=== PATIENT | female | born 1930 | race Caucasian/White ===

== ENCOUNTER 2016-06-18 10:43 | Emergency (ER) | payer MEDICARE, BC ==
[~2016-06-18] VITALS: Ht 160 cm; Wt 50.0 kg
[~2016-06-18 10:43] MED LIST: BENA20TA48 PO; DICL75TA2 PO; HYDR12.58 PO; METO100T13 PO; MISO100T PO
[2016-06-18 10:48] VITALS: Ht 160 cm; Wt 50.0 kg
[2016-06-18] MEDS ORDERED: ONDANSETRON (ODT) 4 MG TAB ODT STA (11:13)
[2016-06-18] MEDS ORDERED: LIDOCAINE 1%/EPI (MDV) 20 ML INJ INJ STA (11:13)
[2016-06-18] MEDS ORDERED: LIDOCAINE 1% (MDV) 20 ML INJ ONE (11:26)
[2016-06-18] MEDS ORDERED: DIPHTH/TET/ACEL PERTUSS (ADULT) 0.5 ML VIAL IM* ONE (11:30)
[2016-06-18] MEDS ORDERED: HYDROCODONE/APAP (10/325) TAB PO ONE (11:30)
[2016-06-18] MEDS ORDERED: LIDOCAINE 1% (MDV) 20 ML INJ SC ONE (11:30)
--- NOTE | 2016-06-18 12:21 | RADRPT ---
PROCEDURE: XR Left Hand CLINICAL INDICATION: Fall, pain TECHNIQUE: AP, oblique, and lateral radiographs were submitted. COMPARISON: None FINDINGS: Osseous structures: The osseous elements appear rarefied but intact. Joint spaces: are well maintained, with no significant spurring, erosion or joint effusion evident. Soft tissues: appear unremarkable. IMPRESSION: 1. Osteoporosis. 2. Otherwise, unremarkable left hand series. Physician Garrett Date Time Electronically viewed and signed by Emelia Wagner Physician on 06/18/2016 12:20 /
--- NOTE | 2016-06-18 13:03 | RADRPT ---
PROCEDURE: CT Brain without contrast. CLINICAL INDICATION: Head trauma status post fall. TECHNIQUE: A CT of the brain was performed on a multidetector CT scanner utilizing axial sections from the skull base through the vertex without contrast. Images were reviewed on a high-resolution [employer] workstation. Exam CTDI = 43.27 mGy and the DLP = 720.23 mGy-cm. One or more of the following dose reduction techniques were used: Automated exposure control Adjustment of the mA and/or kV according to patient size. Use of iterative reconstruction technique. COMPARISON: Head CT 06/25/2015. FINDINGS: Mild diffuse cerebral and cerebellar atrophy is present. There is proportionate dilatation of the v entricular system and sulci in a symmetric fashion. There is prominence of the extraaxial spaces sec ondary to atrophy. Redemonstrated is a large cystic lesion measures up to 3.5 x 4.5 cm in the poste rior left frontal lobe with no perilesional edema. There is minimal local mass effect, not signific antly changed. There is a small area of encephalomalacia in the parasagittal right frontal lobe. Th ere is no evidence of intracranial hemorrhage, increasing mass effect or midline shift. No abnormal intra-axial or extra-axial fluid collections are seen. The density of the brain is normal and the shea/white matter differentiation is well preserved. Mild patchy diffuse deep white matter microang iopathic ischemic change is seen. The osseous structures and visualized paranasal sinuses are unr emarkable. Vascular calcifications are identified. IMPRESSION: 1. No intracranial hemorrhage, mass effect or midline shift. 2. Unchanged cystic lesion measures up to 3.5 x 4.5 cm in the posterior left frontal lobe. No ami lesional edema with minimal local mass effect. 3. Mild generalized atrophy. Mild microangiopathic ischemic change. 4. Intracranial atherosclerosis. RPTAT: BB .Rudolph Bennett MD, Date Time Electronically viewed and signed by .Rudolph Bennett MD, on 06/18/2016 13:03 .O/
--- NOTE | 2016-06-18 13:16 | RADRPT ---
PROCEDURE: CT Cervical Spine. CLINICAL INDICATION: Neck pain status post fall TECHNIQUE: A CT of the cervical spine was performed on a [employer] [place] [employer] 64-slice CT scanner utilizi ng high-resolution axial imaging from the skull base through the cervical thoracic junction. Sagitt al, coronal, and multiplanar reformatted images were made. CTD I: 22.19 mGy and DLP: 440.90 mGy-cm One or more of the following dose reduction techniques were used: Automated exposure control. Adjustment of the mA and/or kV according to patient size. Use of iterative reconstruction technique. COMPARISON: None FINDINGS: There is straightening of the cervical lordosis. No vertebral body subluxation is seen. No fracture s are evident. The posterior elements are normally aligned. The surrounding soft tissues are jorge alberto l in appearance. Craniocervical junction is unremarkable. C2-C3: The disk height is maintained. The central canal and bilateral neural foramina are adequatel y patent. C3-C4: There is mild posterior disk height loss. There is a small disk bulge eccentric to the left with minimal uncovertebral spurring and mild right facet arthropathy. There is mild bilateral neur al foraminal stenosis. The central canal remains adequately patent. C4-C5: The disk height is maintained. There is minimal uncovertebral spurring and left facet arthr opathy. The central canal and bilateral neural foramina are adequately patent. C5-C6: The disk height is maintained. Disk osteophyte complex, prominent left-sided uncovertebral spurring and mild facet arthropathy are seen at this level. There is mild left neural foraminal kathy nosis. The central canal and right neural foramen are adequately patent. C6-C7: There is mild to moderate disk height loss with discogenic endplate changes. Disk osteophyt e complex, prominent left-sided uncovertebral spurring and mild facet arthropathy are seen at this l evel. There is mild to moderate left and mild right neural foraminal stenosis. There is mild centr al canal stenosis. C7-T1: The disk height is maintained. The central canal and bilateral neural foramina are adequate ly patent. IMPRESSION: 1. No acute fracture or traumatic malalignment. 2. Mild cervical spondylosis more evident at C5-C6 and C6-C7 with mild to moderate left-sided neura l foraminal stenosis. There is mild central canal stenosis at C6-C7. The remainder as above. RPTAT: BB .Rudolph Bennett MD, MD Date Time Electronically viewed and signed by .Rudolph Bennett MD, MD on 06/18/2016 13:15 .O/
[2016-06-18 14:28] VITALS: BP 159/72; PULSE 74; RESP 20; TEMP 98.3
--- NOTE | 2016-06-18 14:45 | ERD ---
ER Documentation Chief Complaint Date/Time DATE: 06/18/16 TIME: 14:43 Chief Complaint ground level fall, lacs on face and 4cm lac on L hand HPI Patient is an 85-year-old female with hypertension and arthritis who presents after a slip and fall. She slipped on a wet ground about 30 minutes ago. She hit her face and her left hand. She did not lose consciousness. She does not know when her last tetanus shot was. She has a laceration to the left hand. Her primary doctor is Dr. Vazquez. ROS All systems reviewed and are negative except as per history of present illness. Medications Home Meds Reported Medications Misoprostol* (Cytotec*) 100 Mcg Tablet, 200 MCG PO DAILY, TAB 09/30/15 Metoprolol Succinate* (Toprol XL*) 100 Mg Tab.sr.24h, 100 MG PO DAILY, #30 TAB 09/30/15 Diclofenac Sodium* (Diclofenac Sodium*) 75 Mg Tablet.dr, 75 MG PO DAILY, #60 TAB 06/25/15 Hydrochlorothiazide* (Hydrochlorothiazide*) 12.5 Mg Tablet, 12.5 MG PO DAILY, # 30 TAB 06/25/15 Benazepril Hcl* (Benazepril Hcl*) 20 Mg Tablet, 20 MG PO DAILY, #30 TAB 06/25/15 Allergies Allergies: Coded Allergies: No Known Allergy (Unverified , 09/30/15) PMhx/Soc History of Surgery: Yes (appendectomy) Anesthesia Reaction: No Hx Neurological Disorder: No Hx Respiratory Disorders: No Hx Cardiac Disorders: Yes (htn) Hx Psychiatric Problems: No Hx Miscellaneous Medical Probl: No Hx Alcohol Use: No Hx Substance Use: No Hx Tobacco Use: No Smoking Status: Never smoker FmHx Family History: No diabetes Physical Exam Vitals Vital Signs Date Time Temp Pulse Resp B/P Pulse Ox O2 Delivery O2 Flow Rate FiO2 06/18/16 14:28 98.3 74 20 159/72 98 Room Air 06/18/16 13:05 98.3 70 18 179/78 96 Room Air 06/18/16 10:48 98.3 80 18 218/94 100 Physical Exam Const: Mild distress Head: Atraumatic Eyes: Normal Conjunctiva ENT: Normal External Ears, Nose and Mouth. Neck: Full range of motion..~ No meningismus. Resp: Clear to auscultation bilaterally Cardio: Regular rate and rhythm, no murmurs Abd: Soft, non tender, non distended. Normal bowel sounds Skin: Abrasions to face which are oozing, 6 cm laceration to the left palmar surface of the hand which is bleeding Back: No midline or flank tenderness Ext: No cyanosis, or edema Neur: Awake and alert, III nerve roots of the left upper extremity are intact Psych: Normal Mood and Affect Results 24 hrs Current Medications Medications (Trade) Dose Ordered Sig/Wyatt Route PRN Reason Start Time Stop Time Status Last Admin Dose Admin Diphtheria/ Tetanus/Acell Pertussis (Adacel) 0.5 ml ONCE ONCE IM* 06/18/16 11:30 06/18/16 11:31 DC 06/18/16 11:31 Acetaminophen/ Hydrocodone Bitart ([place] (10/325)) 1 tab ONCE ONCE PO 06/18/16 11:30 06/18/16 11:31 DC 06/18/16 11:29 Ondansetron HCl (Zofran Odt) 4 mg ONCE STAT ODT 06/18/16 11:13 06/18/16 11:15 DC 06/18/16 11:29 Lidocaine/ Epinephrine (Xylocaine 1%/ Epi (Mdv) 20 ml) 20 ml ONCE STAT INJ 06/18/16 11:13 06/18/16 11:15 DC Lidocaine (Xylocaine 1% (Mdv) 20 ml) 20 ml ONCE ONCE SC 06/18/16 11:30 06/18/16 11:31 DC Lidocaine (Xylocaine 1% (Mdv) 20 ml) 20 ml STK-MED ONCE .ROUTE 06/18/16 11:26 06/18/16 11:27 DC Procedures/MDM CT head and cervical spine show no acute fracture or bleeding per radiology. X- ray of the left hand shows no fracture or dislocation or foreign body per radiology. Laceration Repair by me: Anesthesia: 1% lidocaine without epinephrine locally Location: Left hand Tendon/Joint/Nerves: No injury Foreign body: None detected after copious irrigation and exploration Technique: Simple Interrupted Sutures Complexity: No subcutaneous sutures/mucosal repair/ edge excision Post Closure Length: 6 cm Abrasion Repair by me: Anesthesia: None required Location: Facial abrasions Tendon/Joint/Nerves: No injury Foreign body: None detected after copious irrigation and exploration Technique: Dermabond Complexity: No subcutaneous sutures/mucosal repair/ edge excision Patient's bleeding was easily controlled in the department and there is no indication of anemia. No evidence of compartment syndrome, neurologic injury, vascular injury, open joint, tendon laceration, or foreign body. Patient is appropriate for outpatient follow up. 48 hour wound check. Scar minimization instructions given. Departure Diagnosis: Primary Impression: Laceration Additional Impression: Fall Encounter type: initial encounter Qualified Code: W19.XXXA - Fall, initial encounter Condition: Fair Patient Instructions: Fall, Mechanical, Laceration, All Additional Instructions: Wound check 2 DAYS Suture removal 7-10 DAYS CYNDI LOYA MD Jun 18, 2016 14:45
== END 2016-06-18 14:30 | disposition home or self-care (01) ==
LOC: E/R 10:43
DX: S61.412A Laceration without foreign body of left hand, initial encounter (principal); R40.2252 Coma scale, best verbal response, oriented, at arrival to emergency department; S01.81XA Laceration without foreign body of other part of head, initial encounter; I10 Essential (primary) hypertension; R40.2362 Coma scale, best motor response, obeys commands, at arrival to emergency department; R40.2142 Coma scale, eyes open, spontaneous, at arrival to emergency department; W01.0XXA Fall on same level from slipping, tripping and stumbling without subsequent striking against object, initial encounter; Y92.9 Unspecified place or not applicable; Z23 Encounter for immunization
CPT/HCPCS: 70450; 72125; 90471; 90715

== ENCOUNTER 2016-06-22 10:07 | Emergency (ER) | payer MEDICARE, BC ==
[~2016-06-22] VITALS: Ht 157.5 cm; Wt 58.0 kg
[2016-06-22 10:14] VITALS: Ht 157.5 cm; Wt 58.0 kg
[2016-06-22 11:08] VITALS: BP 145/61; PULSE 70; RESP 19; TEMP 97.9
--- NOTE | 2016-06-22 12:01 | ERD ---
ER Documentation Chief Complaint Date/Time DATE: 06/22/16 TIME: 11:59 Chief Complaint left hand wound check HPI Patient is an 85-year-old female with hypertension who presents for a wound check. She had a laceration to her left hand on June 18. She has no fevers and no pus from the wound. She has full range of motion. She did not take her blood pressure medicines today prior to coming to the emergency department. She has no other complaints. ROS All systems reviewed and are negative except as per history of present illness. Medications Home Meds Reported Medications Misoprostol* (Cytotec*) 100 Mcg Tablet, 200 MCG PO DAILY, TAB 09/30/15 Metoprolol Succinate* (Toprol XL*) 100 Mg Tab.sr.24h, 100 MG PO DAILY, #30 TAB 09/30/15 Diclofenac Sodium* (Diclofenac Sodium*) 75 Mg Tablet.dr, 75 MG PO DAILY, #60 TAB 06/25/15 Hydrochlorothiazide* (Hydrochlorothiazide*) 12.5 Mg Tablet, 12.5 MG PO DAILY, # 30 TAB 06/25/15 Benazepril Hcl* (Benazepril Hcl*) 20 Mg Tablet, 20 MG PO DAILY, #30 TAB 06/25/15 Allergies Allergies: Coded Allergies: No Known Allergy (Unverified , 06/22/16) PMhx/Soc History of Surgery: Yes (appendectomy) Anesthesia Reaction: No Hx Neurological Disorder: No Hx Respiratory Disorders: No Hx Cardiac Disorders: Yes (htn) Hx Psychiatric Problems: No Hx Miscellaneous Medical Probl: No Hx Alcohol Use: No Hx Substance Use: No Hx Tobacco Use: No FmHx Family History: No diabetes Physical Exam Vitals Vital Signs Date Time Temp Pulse Resp B/P Pulse Ox O2 Delivery O2 Flow Rate FiO2 06/22/16 11:08 97.9 70 19 145/61 100 Room Air 06/22/16 10:14 97.6 55 18 206/84 99 Physical Exam Const: No acute distress Head: Atraumatic Eyes: Normal Conjunctiva ENT: Normal External Ears, Nose and Mouth. Neck: Full range of motion..~ No meningismus. Resp: Clear to auscultation bilaterally Cardio: Regular rate and rhythm, no murmurs Abd: Soft, non tender, non distended. Normal bowel sounds Skin: Abrasions to the face without infection, laceration to left hand is clean, dry, and intact Back: No midline or flank tenderness Ext: No cyanosis, or edema Neur: Awake and alert Psych: Normal Mood and Affect Procedures/MDM Wound shows no evidence of infection, foreign body, neurologic injury, vascular injury, open joint or tendon laceration. Patient appropriate for outpatient follow up. Patient has essential hypertension and did not take her blood pressure medicines this morning. Her blood pressure is elevated in the emergency department. I told her to take her blood pressure medicines as soon as the patient gets home. I doubt stroke or hypertensive emergency. The patient can return for any worsening symptoms. She will need her sutures removed in 3-5 days. Departure Diagnosis: Primary Impression: Hypertension Hypertension type: essential hypertension Qualified Code: I10 - Essential hypertension Additional Impression: Encounter for wound re-check Condition: Fair Patient Instructions: High Blood Pressure (Hypertension), Wound Check, Lac F/U (No Infection) Additional Instructions: Call your primary care doctor TOMORROW for an appointment during the next 2-3 days.See the doctor sooner or return here if your condition worsens before your appointment time. CYNDI LOYA MD Jun 22, 2016 12:01
== END 2016-06-22 11:20 | disposition home or self-care (01) ==
LOC: E/R 10:07
DX: I10 Essential (primary) hypertension (principal)
CPT/HCPCS: 99281

== ENCOUNTER 2016-06-28 10:52 | Emergency (ER) | payer MEDICARE, BC ==
[~2016-06-28] VITALS: Ht 160 cm; Wt 57.0 kg
[2016-06-28 11:20] VITALS: Ht 160 cm; Wt 57.0 kg
--- NOTE | 2016-06-28 12:52 | ERD ---
ER Documentation Chief Complaint Date/Time DATE: 06/28/16 TIME: 12:51 Chief Complaint FOR LEFT HAND SUTURE REMOVAL HPI 85-year-old female comes in for suture removal from the left hand from a slip and fall injury that occurred about a week ago. Patient states that she has slip and fall, she was here, did not lose any consciousness, no vomiting. She has no complaints, no fever, chills or drainage. ROS All systems reviewed and are negative except as per history of present illness. Medications Home Meds Reported Medications Misoprostol* (Cytotec*) 100 Mcg Tablet, 200 MCG PO DAILY, TAB 09/30/15 Metoprolol Succinate* (Toprol XL*) 100 Mg Tab.sr.24h, 100 MG PO DAILY, #30 TAB 09/30/15 Diclofenac Sodium* (Diclofenac Sodium*) 75 Mg Tablet.dr, 75 MG PO DAILY, #60 TAB 06/25/15 Hydrochlorothiazide* (Hydrochlorothiazide*) 12.5 Mg Tablet, 12.5 MG PO DAILY, # 30 TAB 06/25/15 Benazepril Hcl* (Benazepril Hcl*) 20 Mg Tablet, 20 MG PO DAILY, #30 TAB 06/25/15 Allergies Allergies: Coded Allergies: No Known Allergy (Unverified , 06/22/16) PMhx/Soc History of Surgery: Yes (appendectomy) Anesthesia Reaction: No Hx Neurological Disorder: No Hx Respiratory Disorders: No Hx Cardiac Disorders: Yes (htn) Hx Psychiatric Problems: No Hx Miscellaneous Medical Probl: No Hx Alcohol Use: No Hx Substance Use: No Hx Tobacco Use: No Physical Exam Vitals Vital Signs Date Time Temp Pulse Resp B/P Pulse Ox O2 Delivery O2 Flow Rate FiO2 06/28/16 11:20 98.7 64 18 187/79 98 Physical Exam General: Well-developed, well-nourished. The patient appears in no acute distress. HEENT: Head is normocephalic, atraumatic. No scleral icterus. Neck: Supple. Nontender. Lungs: Clear to auscultation. Normal air movement. Heart: Regular rate and rhythm. S1 and S2 are normal. No murmurs, gallops, or rubs. Abdomen: Soft, nontender, nondistended. Bowel sounds are normoactive. Extremities: Left palm is a 4 cm transverse laceration in the middle of the palm , there is no dehiscence, erythema or drainage, there is 9 simple interrupted sutures intact Neurologic: Alert and oriented 3. No focal deficits. Skin: Normal turgor. No rash or lesions. Procedures/MDM ED course: Patient's hand was soaked in hydrogen peroxide and normal saline. Suture Removal by me: Sutures removed with tweezers and scissors without incident. Wound shows no evidence of infection, foreign body, neurologic injury, vascular injury, open joint or tendon laceration. Patient to follow up PRN. Patient's blood pressure was elevated (>120/80) but appears stable without evidence of hypertension emergency or urgency. The patient was counseled about the risks of hypertension and urged to pursue outpatient monitoring and therapy within a week with their primary care physician. Departure Diagnosis: Primary Impression: Encounter for removal of sutures Condition: Good Patient Instructions: Suture Removal, No Complication JONATHAN GRAHAM PA-C Jun 28, 2016 12:52
== END 2016-06-28 13:11 | disposition home or self-care (01) ==
LOC: FTE 10:52
DX: Z48.02 Encounter for removal of sutures (principal); I10 Essential (primary) hypertension
CPT/HCPCS: 99281

== ENCOUNTER 2016-10-12 11:25 | Inpatient (IN) | payer MEDICARE, BC ==
[~2016-10-12] VITALS: Ht 160 cm; Wt 55.0 kg
[2016-10-12] MEDS ORDERED: SOD CHLORIDE 0.9% 1,000 ML IV STA (12:27)
[2016-10-12] MEDS ORDERED: LABETALOL HCL 20MG INJ IV ONE (12:30)
[2016-10-12 12:53] LABS: ADD SCAN DIFF NO
[2016-10-12 12:55] LABS: BASOPHIL # 0.1 10^3/ul (0.0-0.1); BASOPHILS % 0.6 % (0.0-2.0); EOSINOPHILS # 0.1 10^3/ul (0.0-0.5); EOSINOPHILS % 1.2 % (0.0-7.0); HEMOGLOBIN 13.9 g/dl (12.0-16.0); LYMPHOCYTES # 1.9 10^3/ul (0.8-2.9); LYMPHOCYTES % 25.2 % (15.0-51.0); MEAN CORPUSCULAR HEMOGLOBIN 31.1 pg (29.0-33.0); MEAN CORPUSCULAR HGB CONC 33.1 g/dl (32.0-37.0); MEAN PLATELET VOLUME 9.9 fl (7.4-10.4); MONOCYTE # 0.8 10^3/ul (0.3-0.9); MONOCYTES % 10.6 % (0.0-11.0); NEUTROPHIL # 4.8 10^3/ul (1.6-7.5); PLATELET COUNT 294 10^3/UL (140-415); RED BLOOD COUNT 4.47 10^6/ul (4.20-5.40); RED CELL DISTRIBUTION WIDTH 12.6 % (11.5-14.5); WHITE BLOOD COUNT 7.7 10^3/ul (4.8-10.8)
--- NOTE | 2016-10-12 13:05 | ERA ---
ER Documentation Chief Complaint Date/Time DATE: 10/12/16 TIME: 12:57 Chief Complaint sent by pmd for dizziness and near syncope HPI This 85-year-old female has been feeling dizzy and like she is going to faint for the last couple of days. She did not faint or fall. She has also been feeling palpitations. Denies chest pain shortness of breath and nausea. Triage EKG shows atrial fibrillation which she has never had before. She has no pain currently. ROS All systems reviewed and are negative except as per history of present illness. Medications Home Meds Reported Medications Misoprostol* (Cytotec*) 100 Mcg Tablet, 200 MCG PO DAILY, TAB 09/30/15 Metoprolol Succinate* (Toprol XL*) 100 Mg Tab.sr.24h, 100 MG PO DAILY, #30 TAB 09/30/15 Diclofenac Sodium* (Diclofenac Sodium*) 75 Mg Tablet.dr, 75 MG PO DAILY, #60 TAB 06/25/15 Hydrochlorothiazide* (Hydrochlorothiazide*) 12.5 Mg Tablet, 12.5 MG PO DAILY, # 30 TAB 06/25/15 Benazepril Hcl* (Benazepril Hcl*) 20 Mg Tablet, 20 MG PO DAILY, #30 TAB 06/25/15 Allergies Allergies: Coded Allergies: No Known Allergy (Unverified , 06/22/16) PMhx/Soc History of Surgery: Yes (appendectomy) Anesthesia Reaction: No Hx Neurological Disorder: No Hx Respiratory Disorders: No Hx Cardiac Disorders: Yes (htn) Hx Psychiatric Problems: No Hx Miscellaneous Medical Probl: No Hx Alcohol Use: No Hx Substance Use: No Hx Tobacco Use: No Smoking Status: Never smoker Physical Exam Vitals Vital Signs Date Time Temp Pulse Resp B/P Pulse Ox O2 Delivery O2 Flow Rate FiO2 10/12/16 14:36 91 20 134/86 99 Room Air 10/12/16 12:58 87 20 147/73 99 Room Air 10/12/16 11:37 98.1 94 18 204/100 98 Physical Exam Const: [] Mild distress, appears uncomfortable Head: Atraumatic Eyes: Normal Conjunctiva ENT: Normal External Ears, Nose and Mouth. Neck: Full range of motion..~ No meningismus. Resp: Clear to auscultation bilaterally Cardio: Irregularly irregular, no murmurs Abd: Soft, non tender, non distended. Normal bowel sounds Skin: No petechiae or rashes Back: No midline or flank tenderness Ext: No cyanosis, or edema, distal pulses intact all 4 extremities Neur: Awake and alert oriented 3, cranial nerves II through XII intact, no cerebellar deficits Psych: Normal Mood and Affect Result Diagram: 10/12/16 1245 10/12/16 1245 Results 24 hrs Laboratory Tests Test 10/12/16 12:45 White Blood Count 7.710^3/ul Red Blood Count 4.4710^6/ul Hemoglobin 13.9g/dl Hematocrit 42.0% Mean Corpuscular Volume 94.0fl Mean Corpuscular Hemoglobin 31.1pg Mean Corpuscular Hemoglobin Concent 33.1g/dl Red Cell Distribution Width 12.6% Platelet Count 72068^3/UL Mean Platelet Volume 9.9fl Neutrophils % 62.0% Lymphocytes % 25.2% Monocytes % 10.6% Eosinophils % 1.2% Basophils % 0.6% Nucleated Red Blood Cells % 0.0/100WBC Neutrophils # 4.810^3/ul Lymphocytes # 1.910^3/ul Monocytes # 0.810^3/ul Eosinophils # 0.110^3/ul Basophils # 0.110^3/ul Nucleated Red Blood Cells # 0.010^3/ul Prothrombin Time 12.6Sec Prothrombin Time Ratio 1.0 INR International Normalized Ratio 0.94 Activated Partial Thromboplast Time 35.2Sec Sodium Level 139mmol/L Potassium Level 4.4mmol/L Chloride Level 101mmol/L Carbon Dioxide Level 28mmol/L Anion Gap 14 Blood Urea Nitrogen 17mg/dl Creatinine 0.86mg/dl Glucose Level 97mg/dl Calcium Level 9.7mg/dl Troponin I < 0.012ng/ml Current Medications Medications (Trade) Dose Ordered Sig/Wyatt Route PRN Reason Start Time Stop Time Status Last Admin Dose Admin Sodium Chloride (NS) 1,000 ml @ 1,000 mls/hr Q1H STAT IV 10/12/16 12:27 10/12/16 13:26 DC 10/12/16 12:48 Labetalol HCl (Labetalol) 20 mg ONCE ONCE IV 10/12/16 12:30 10/12/16 12:31 DC 10/12/16 12:49 Ondansetron HCl (Zofran Inj) 4 mg ER BRIDGE PRN IV NAUSEA AND/OR VOMITING 10/12/16 15:30 10/13/16 15:29 Acetaminophen (Tylenol Tab) 650 mg ER BRIDGE PRN PO MILD PAIN/FEVER 10/12/16 15:30 10/13/16 15:29 Procedures/MDM New onset A. fib with occasional RVR over 100 in the emergency room prior to labetalol IV. Also with hypertensive crisis that she had symptoms of near syncope with a systolic blood pressure over 200 and a diastolic blood pressure over 100. She is taking her normal hypertension medications are no longer working. Patient also has signs of ischemia on her EKG. I did a 10 of labetalol her blood pressure was controlled but she did have a return of mild A. fib with RVR. I am going to withhold further medication at this time and his heart rate is less than 110. Spoke with Dr. Miranda Jarrett and, the primary care doctor who sent her here who will also be admitting. She will be admitted for new onset A. fib and further monitoring. EKG interpretation: Atrial fibrillation rate of 96, lateral T-wave inversions concerning for ischemia, normal axis. court monitor interpretation: Atrial fibrillation with occasional RVR followed by rate controlled A. fib after labetalol Critical care time 38 minutes: This includes treatment of hypertensive crisis with A. fib with RVR, use of vasoactive medication labetalol, multiple visits the patient's bedside to reassess her status, discussion with patient admitting doctor, chart review. This does not include any billable procedures. Departure Diagnosis: Primary Impression: New onset atrial fibrillation Additional Impressions: Atrial fibrillation with RVR Hypertensive crisis Near syncope Acute electrocardiogram changes Condition: Serious GA LONG DO October 12, 2016 13:05
[2016-10-12 13:09] LABS: INR 0.94; PROTIME 12.6 Sec (12.2-14.2)
[2016-10-12 13:10] LABS: PARTIAL THROMBOPLASTIN TIME 35.2 Sec (25.0-35.0)
[2016-10-12 13:13] LABS: CHLORIDE 101 mmol/L (97-110); SODIUM 139 mmol/L (135-144)
[2016-10-12 13:14] LABS: POTASSIUM 4.4 mmol/L (3.5-5.1)
[2016-10-12 13:16] LABS: ANION GAP 14 (8-16); BLOOD UREA NITROGEN 17 mg/dl (7-20); CARBON DIOXIDE 28 mmol/L (21-31); CREATININE 0.86 mg/dl (0.44-1.00)
[2016-10-12 13:17] LABS: CALCIUM 9.7 mg/dl (8.4-10.2); GLUCOSE 97 mg/dl (70-220)
[2016-10-12 13:32] LABS: TROPONIN-I < 0.012 ng/ml (0.00-0.12)
--- NOTE | 2016-10-12 13:37 | RADRPT ---
PROCEDURE: XR Chest. CLINICAL INDICATION: Syncope TECHNIQUE: Single frontal chest x-ray. COMPARISON: None. FINDINGS: No acute infiltrate, pleural effusion or pneumothorax is identified. Cardiac silhouette is borderli ne enlarged. Aortic atherosclerotic calcification is noted. The osseous structures are remarkable for degenerative spondylosis of the spine. IMPRESSION: 1. Borderline enlarged cardiac silhouette. Aortic atherosclerosis. 2. No evidence of acute pulmonary process. RPTAT: HDWR .Tray Mills MD, MD Date Time Electronically viewed and signed by .Tray Mills MD, on 10/12/2016 13:36 .R/
[2016-10-12] MEDS ORDERED: ONDANSETRON 4 MG INJ IV PRN (15:30)
[2016-10-12] MEDS ORDERED: ACETAMINOPHEN 325 MG TAB PO PRN (15:30)
--- NOTE | 2016-10-12 16:20 | RADRPT ---
PROCEDURE: CT Brain without contrast. CLINICAL INDICATION: Syncope TECHNIQUE: A CT of the brain was performed on a multidetector CT scanner utilizing axial sections from the skull base through the vertex without contrast. Images were reviewed on a high-resolution [employer] workstation. Exam CTDI = 43.95 mGy and the DLP = 630.20 mGy-cm. One or more of the following dose reduction techniques were used: Automated exposure control Adjustment of the mA and/or kV according to patient size. Use of iterative reconstruction technique. COMPARISON: CT head 06/18/2016 FINDINGS: Mild diffuse cerebral and cerebellar atrophy is present. There is proportionate dilatation of the ve ntricular system and sulci in a symmetric fashion. Once again, there is a cystic lesion measures up to 3.5 x 4.5 cm in the posterior left frontal lobe with no associated mass effect or perilesional e celina. There is a small area of encephalomalacia in the parasagittal right frontal lobe. There is no evidence of intracranial hemorrhage, increasing mass effect or midline shift. No abnormal intra-axi al or extra-axial fluid collections are seen. Mild periventricular and deep white matter hypoattenua tion is noted in keeping with mild chronic microvascular ischemic changes. The density of the brain is otherwise normal and the shea/white matter differentiation is well preserved. The osseous structu res and visualized paranasal sinuses are unremarkable. Vascular calcifications are identified. IMPRESSION: 1. No intracranial hemorrhage, mass effect or midline shift. 2. Unchanged cystic lesion measures up to 3.5 x 4.5 cm in the posterior left frontal lobe. No signif icant associated mass effect or perilesional edema. 3. Mild generalized atrophy. Mild microangiopathic ischemic change. 4. Intracranial atherosclerosis. RPTAT: BB .Rudolph Bennett MD, MD Date Time Electronically viewed and signed by .Rudolph Bennett MD, MD on 10/12/2016 16:20 .O/
[2016-10-12 16:35] VITALS: BP 206/95; PULSE 103; RESP 16
[2016-10-12] MEDS ORDERED: DILTIAZEM 25 MG INJ IV PRN (17:00)
[2016-10-12] MEDS ORDERED: ACETAMINOPHEN 500 MG TAB PO PRN (17:00)
[2016-10-12] MEDS ORDERED: ZOLPIDEM 5 MG TAB PO PRN (17:00)
[2016-10-12 17:06] VITALS: PULSE 122
[2016-10-12] MEDS: METOPROLOL (XL) 100 MG TAB PO SCH (17:43)
[2016-10-12] MEDS: BENAZEPRIL 20 MG TAB PO SCH (17:43)
[2016-10-12 18:05] VITALS: Ht 160 cm; Wt 55.0 kg
[2016-10-12 18:18] VITALS: BP 200/84
[2016-10-12 20:10] VITALS: PULSE 75
[2016-10-12 20:19] VITALS: BP 132/73; RESP 18
[2016-10-13] VITALS (13 sets, daily range): BP systolic 125–182; BP diastolic 57–91; PULSE 78–92; RESP 18–20
[2016-10-13 08:05] LABS: ADD SCAN DIFF NO
[2016-10-13 08:09] LABS: BASOPHIL # 0.1 10^3/ul (0.0-0.1); BASOPHILS % 0.5 % (0.0-2.0); EOSINOPHILS # 0.1 10^3/ul (0.0-0.5); EOSINOPHILS % 0.6 % (0.0-7.0); HEMATOCRIT 42.7 % (37.0-47.0); LYMPHOCYTES # 1.9 10^3/ul (0.8-2.9); LYMPHOCYTES % 20.6 % (15.0-51.0); MEAN CORPUSCULAR HEMOGLOBIN 31.2 pg (29.0-33.0); MEAN CORPUSCULAR HGB CONC 32.8 g/dl (32.0-37.0); MEAN CORPUSCULAR VOLUME 95.1 fl (82.0-101.0); MEAN PLATELET VOLUME 10.1 fl (7.4-10.4); MONOCYTE # 0.9 10^3/ul (0.3-0.9); MONOCYTES % 9.8 % (0.0-11.0); NEUTROPHIL # 6.3 10^3/ul (1.6-7.5); NEUTROPHILS % 68.1 % (39.0-77.0); PLATELET COUNT 303 10^3/UL (140-415); RED BLOOD COUNT 4.49 10^6/ul (4.20-5.40); RED CELL DISTRIBUTION WIDTH 12.7 % (11.5-14.5); WHITE BLOOD COUNT 9.3 10^3/ul (4.8-10.8)
[2016-10-13 08:30] LABS: ALANINE AMINOTRANSFERASE 69 IU/L (13-69); ALBUMIN/GLOBULIN RATIO 1.42; ALKALINE PHOSPHATASE 95 IU/L (42-121); ANION GAP 11 (8-16); ASPARTATE AMINO TRANSFERASE 37 IU/L (15-46); BILIRUBIN,INDIRECT 0.9 mg/dl (0-1.1); BILIRUBIN,TOTAL 0.9 mg/dl (0.2-1.3); BLOOD UREA NITROGEN 13 mg/dl (7-20); CALCIUM 9.7 mg/dl (8.4-10.2); CARBON DIOXIDE 28 mmol/L (21-31); CHLORIDE 104 mmol/L (97-110); CHOL/HDL RATIO 3.5 RATIO; CHOLESTEROL 175 mg/dl (100-200); CREATININE 0.81 mg/dl (0.44-1.00); GLUCOSE 93 mg/dl (70-220); HDL CHOLESTEROL 49 mg/dl (33-92); POTASSIUM 4.9 mmol/L (3.5-5.1); SODIUM 138 mmol/L (135-144); TOTAL PROTEIN 6.8 g/dl (6.1-8.1); TRIGLYCERIDES 110 mg/dl (0-149)
[2016-10-13 08:42] LABS: TROPONIN-I < 0.012 ng/ml (0.00-0.12)
[2016-10-13] MEDS: METOPROLOL (XL) 100 MG TAB PO SCH (08:43)
[2016-10-13] MEDS: BENAZEPRIL 20 MG TAB PO SCH (08:43)
[2016-10-13] MEDS: ENOXAPARIN 40 MG/0.4 ML SYG SC SCH (08:49)
[2016-10-13] MEDS ORDERED: BENAZEPRIL 20 MG TAB PO SCH (09:30)
--- NOTE | 2016-10-13 09:59 | HP ---
DATE OF ADMISSION: 10/12/2016 CHIEF COMPLAINT: Shortness of breath. HISTORY OF PRESENT ILLNESS: The patient is an 85-year-old lady who has been complaining of increasi ng dizziness, about to faint, has been going on for the last 3 days and there is definitely no histo ry of fall and also has been having palpitations, seen in my office and was found to be in atrial fi brillation, clinically and with severe hypertension, referred to the emergency room from where she w as admitted. REVIEW OF SYSTEMS: HEAD: No history of headaches. No history of strokes. EYES: History of glaucoma. ENT: Noncontributory. NECK: No history of thyroid disease. The patient does have carotid stenosis. HEART: No PND, orthopnea, palpitations or chest pains. The patient has been referred several times to field foreman and not clear whether she ever made the appointment. She states that she was seen by doctors recently for dizziness, had some studies on her brain done, again details are not very cl ear. GASTROINTESTINAL: No constipation, diarrhea, change in bowel habits. Never had a colonoscopy and d oes not want to have same. GENITOURINARY: No dysuria, hematuria, kidney stones. Mammogram done 2 years ago was normal. GENERAL: No history of weight loss, weight gain. PRIOR SURGERIES: Include cholecystectomy and appendectomy . FAMILY HISTORY: Father in his 40s, exact details not clear. Mother has hypertension. The pat ient is , has no children. ALLERGIES: NO KNOWN ALLERGIES. MEDICATIONS: Include: 1. Cytotec 100 mcg daily. 2. Metoprolol succinate 100 mg q.24h. 3. Diclofenac sodium 75 mg p.o. daily. 4. Hydrochlorothiazide 12.5 mg daily. 5. Benazepril 20 mg p.o. daily. PHYSICAL EXAMINATION: GENERAL: The patient is an average-built female who is presently in no acute distress. VITAL SIGNS: While in the ER, her blood pressure was 204/100. Ventricular rate was over 100 and wh ile in the ER she was given labetalol 20 mg IV with improvement of her blood pressure and was transf erred to the telemetry unit. HEENT: Pupils 3 mm reacting well to light. ENT: NAD. NECK: Supple. No thyromegaly, bruits or lymphadenopathy. CHEST: Clinically clear. HEART: S1, S2 heard with no definite gallops. ABDOMEN: Soft, nontender, no hepatosplenomegaly. EXTREMITIES: No edema. Pedal pulsations not palpable. Homans sign is negative. NEUROLOGIC: No localizing or lateralizing signs. LABORATORY DATA: Initial WBC count 12.7, hematocrit 42, platelet count is 294. Sodium 139, potassi um 4.4. Troponin 0.012, PT INR 0.94. IMAGING: Chest x-ray shows cardiomegaly. CT of the brain shows cystic lesion 3.5 x 4.5 cm in the posterior left frontal lobe with no associat ed mass effect or midline shift. IMPRESSION: 1. Dizziness, likely secondary to severe hypertension and new onset atrial fibrillation with rapid ventricular response. 2. Likely has underlying coronary artery disease. 3. Peripheral vascular disease with carotid stenosis and PAD. PLAN: The patient will continue calcium channel blockers on a p.r.n. basis and continue beta blocke rs and BOAZ inhibitors and obtain carotid vascular study and repeat troponin this morning and cardiol ogy consultation has been requested with Dr. Martinez and follow his recommendations. Dictated By: MELANIE ROBLEDO MD SR/DENIA Conf#: [id number] DID#: [id number]
--- NOTE | 2016-10-13 10:03 | RADRPT ---
Echocardiogram Report Patient Name: CHA MUNROE Gender: Female Date: 1930 Study Date: 13-Oct-2016 Fruit Culler: [facility] Location: [id number] Ref. Physician: MELANIE ROBLEDO Quality: Good Procedures: Transthoracic echocardiogram with complete 2D, M-Mode, and doppler examination. Indications: new onset Atrial Fibrillation. 2D/M Mode Doppler Measurement Value Normal Ranges Measurement Value Normal Ranges LVIDd 2D 4.3 3.5 - 5.6 cm AV Peak [place] 1.7 m/sec LVIDs 2D 2.9 2.1 - 4.1 cm AV Peak PG 12.0 mmHg FS 2D 32.6 % LVOT Peak [place] 1.3 m/sec LVPWd 2D 0.9 0.6 - 1.1 cm LVOT Peak PG 7.0 mmHg IVSd 2D 0.9 0.6 - 1.1 cm MV E Peak [place] 1.0 m/sec IVS/LVPW 2D 1.1 MV Decel Time 113 msec AoR Diam 2D 2.7 2.0 - 3.7 cm TR Peak [place] 2.7 m/sec LA/Ao 2D 1 0 - 1 TR Peak PG 29.0 mmHg EDV 2D 80.6 cm3 RVSP 37.0 mmHg ESV 2D 24.6 cm3 LA Dimen 2D 3.6 2.3 - 4.0 cm Findings Left Ventricle: Normal left ventricular systolic function. Normal left ventricular cavity size. Normal left ventricular wall thickness. Ejection fraction is visually estimated at 60 %. Right Ventricle: Normal right ventricular size. Normal right ventricular systolic function. Left Atrium: The left atrium is normal in size. Right Atrium: The right atrium is normal in size. Mitral Valve: Mitral valve leaflets appear mildly thickened. Mild mitral annular calcification. Mild mitral valve regurgitation. Aortic Valve: No significant aortic stenosis or insufficiency. Aortic cusps appear mildly calcified. Trileaflet aortic valve. Tricuspid Valve: Normal appearance of the tricuspid valve. Right ventricular systolic pressure is consistent with mild pulmonary hypertension. Estimated peak PA systolic pressure 34 mmHg. There is mild tricuspid regurgitation. Pulmonic Valve: There is mild pulmonic regurgitation. Pericardium: Normal pericardium with no significant pericardial effusion. Aorta: Normal aortic root. IVC: Normal size and normal respiratory collapse consistent with normal right atrial pressure. Conclusions 1.Normal left ventricular systolic function. Normal left ventricular cavity size. Normal left ventricular wall thickness. Ejection fraction is visually estimated at 60 %. 2.Normal right ventricular size. Normal right ventricular systolic function. 3.No significant aortic stenosis or insufficiency. Aortic cusps appear mildly calcified. Trileaflet aortic valve. 4.Normal appearance of the tricuspid valve. Right ventricular systolic pressure is consistent with mild pulmonary hypertension. Estimated peak PA systolic pressure 34 mmHg. There is mild tricuspid regurgitation. 5.Normal size and normal respiratory collapse consistent with normal right atrial pressure. 6.Normal pericardium with no significant pericardial effusion. 7.No Vegetation, masses, or thrombi seen. Electronically Signed By: Ephraim Renteria 13-Oct-2016 10:03:03 -0700 Patient Name: CHA MUNROE Study Date: 13-Oct-2016 [id number]
--- NOTE | 2016-10-13 11:01 | RADRPT ---
PROCEDURE: US Carotids. CLINICAL INDICATION: bruit , dizziness TECHNIQUE: Multiple sonographic of the carotid bifurcation region and vertebral arteries were obta ined utilizing shea scale, duplex and color-flow imaging. The images were reviewed on a PACS worksta tion. COMPARISON: No prior studies are available for comparison. FINDINGS: Evaluation of the right carotid bifurcation region reveals moderate to severe calcific atherosclerot ic disease. there is a 55% stenosis in the right carotid bulb region. Evaluation of the left carotid bifurcation region reveals mild to moderate calcific atherosclerotic disease. . There is a 36% stenosis in the left distal common carotid artery. There is a 50% stenos is in the left carotid bifurcation. There is antegrade flow within the vertebral arteries bilaterally. RIGHT CAROTID MEASUREMENTS: Common Carotid Sozoyb39.2 (cm/sec) Internal Carotid Artery - okkubmmx58.0 (cm/sec) Internal Carotid Artery - onn261.4 (cm/sec) Internal Carotid Artery - lalkmu171.8 (cm/sec) Internal Carotid/Common Carotid5.6 LEFT CAROTID MEASUREMENTS: Common Carotid Bpmxsh05.7 (cm/sec) Internal Carotid Artery - zcigaprl54.6 (cm/sec) Internal Carotid Artery - heu527.6 (cm/sec) Internal Carotid Artery - bncxof094.6 (cm/sec) Internal Carotid/Common Carotid1.93 RPTAT: AA IMPRESSION: Elevated velocities in the right ICA, suspicious for a 50-69% stenosis. Validated velocity measurements with angiographic measurements, velocity criteria are extrapolated f rom diameter data as defined by the Society of Radiologists in Ultrasound Consensus Conference Radio logy 2003; 229;340-346. This study does indirectly reference the measurement of the distal ICA diam eter as the denominator for stenosis measurement. Normal antegrade flow in the vertebral arteries bilaterally. Further evaluation with a CT angiogram is recommended. .Caio Antonio MD, MD Date Time Electronically viewed and signed by .Caio Antonio MD, MD on 10/13/2016 11:00 .S/
--- NOTE | 2016-10-13 12:25 | CONS ---
Date/Time of Note Date/Time of Note DATE: 10/13/16 TIME: 11:58 Assessment/Plan Assessment/Plan Chief Complaint/Hosp Course Impression: - atrial fibrillation- new diagnosis, non-valvular. dizziness likely related. currently rate controlled. does have elevated [id number] score 7 (age > 75, woman, htn, old stroke/tia 2003, pvd). does also have elevated bleeding risk with has bled score of 4. could consider low dose eliquis 2.5mg po bid trial given lower risk of bleeding - hypertension- needs improved control, on bid acei now and metop. ok to restart thiazide as listed on outpt medications. - carotid stenosis- no cva on ct scan, cont statin. anticoag as above Problems: Consultation Date/Type/Reason Admit Date/Time October 12, 2016 at 15:06 Date of Consultation: October 13, 2016 Type of Consultation: Cardiology Reason for Consultation Afib Referring Provider: MELANIE ROBLEDO MD Hx of Present Illness Ms. Bernstein is a pleasant 85 y.o. woman with h/o of hypertension, pvd who is admitted to [facility] due to dizziness. Pt reports chronic dizziness for 1 year which has been progressive more recently. Pt states occurs mostly with activity, has had previous falls x 5, most recently in 05/2016 she states. Has associated palpitations. no n/v, diaphoresis, sob, chest pain. Pt denies dizziness at rest/ laying down. no pnd, orthopnea, edema. pt ambulates to bus, no chest pain, sob. states she was previously on asa, stopped due to blood in her stool. no major gi bleeding hx she states. EKG in ED showed rate controlled afib, pt denies h/o of arrhythmia. also with uncontrolled hypertension on presentation Constitutional: no complaints Eyes: no complaints ENT: no complaints Respiratory: no complaints Cardiovascular: palpitations Gastrointestinal: no complaints Genitourinary: no complaints Musculoskeletal: no complaints Skin: no complaints Neurologic: dizziness Endocrine: no complaints Psychological: nl mood/affect, no complaints Immunologic: no complaints Past Medical History Dizziness Falls HTN CVA 2003' PVD - carotid stenosis Glaucoma PAC Past Surgical History Past Surgical Hx: other (gluacoma) Family History Significant Family History: other (no premature cad) Social History Alcohol Use: none Smoking Status: Never smoker Drug Use: none Exam/Review of Systems Vital Signs Vitals Vital Signs Date Time Temp Pulse Resp B/P Pulse Ox O2 Delivery O2 Flow Rate FiO2 10/13/16 11:18 98.0 77 18 157/72 100 10/12/16 16:35 Room Air Intake and Output 10/12/16 10/12/16 10/13/16 15:00 23:00 07:00 Intake Total 200 ml 120 ml Balance 200 ml 120 ml Exam Constitutional: alert, oriented, well developed Psych: no complaints Head: atraumatic, normocephalic Eyes: EOMI, nl conjunctiva, nl lids ENMT: mucosa pink and moist, nl external ears & nose Neck: non-tender, supple Respiratory: clear to auscultation, normal air movement Cardiovascular: irregular rhythm, nl pulses, No S3, No S4, No bruits, No edema, No systolic murmur Gastrointestinal: nl liver, spleen, non-tender, soft Musculoskeletal: nl extremities to inspection, nl gait and stance Extremities: normal pulses Neurological: TICKET WORKER II-XII 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, nl mental status, nl speech, nl strength Skin: nl turgor Results Result Diagram: 10/13/16 0740 10/13/16 0740 Results 24 hrs Laboratory Tests Test 10/12/16 12:45 10/13/16 07:40 White Blood Count 7.7 9.3 # Red Blood Count 4.47 4.49 Hemoglobin 13.9 14.0 Hematocrit 42.0 42.7 Mean Corpuscular Volume 94.0 95.1 Mean Corpuscular Hemoglobin 31.1 31.2 Mean Corpuscular Hemoglobin Concent 33.1 32.8 Red Cell Distribution Width 12.6 12.7 Platelet Count 294 303 Mean Platelet Volume 9.9 10.1 Neutrophils % 62.0 68.1 Lymphocytes % 25.2 20.6 Monocytes % 10.6 9.8 Eosinophils % 1.2 0.6 Basophils % 0.6 0.5 Nucleated Red Blood Cells % 0.0 0.0 Neutrophils # 4.8 6.3 Lymphocytes # 1.9 1.9 Monocytes # 0.8 0.9 Eosinophils # 0.1 0.1 Basophils # 0.1 0.1 Nucleated Red Blood Cells # 0.0 0.0 Prothrombin Time 12.6 Prothrombin Time Ratio 1.0 INR International Normalized Ratio 0.94 Activated Partial Thromboplast Time 35.2 H Sodium Level 139 138 Potassium Level 4.4 4.9 Chloride Level 101 104 Carbon Dioxide Level 28 28 Anion Gap 14 11 Blood Urea Nitrogen 17 13 Creatinine 0.86 0.81 Glucose Level 97 93 Calcium Level 9.7 9.7 Troponin I < 0.012 < 0.012 Hemoglobin A1c 5.4 Total Bilirubin 0.9 Direct Bilirubin 0.00 Indirect Bilirubin 0.9 Aspartate Amino Transf (AST/SGOT) 37 Alanine Aminotransferase (ALT/SGPT) 69 Alkaline Phosphatase 95 Total Protein 6.8 Albumin 4.0 Globulin 2.80 Albumin/Globulin Ratio 1.42 Triglycerides Level 110 Cholesterol Level 175 LDL Cholesterol, Calculated 104 HDL Cholesterol 49 Cholesterol/HDL Ratio 3.5 Medications Medications Current Medications Acetaminophen (Tylenol Tab) 500 mg Q4H PRN PO PAIN AND OR ELEVATED TEMP; Start 10/12/16 at 17:00 Clonidine (Catapres) 0.1 mg Q4H PRN PO ELEVATED BLOOD PRESSURE; Start 10/12/16 at 17:00 Metoprolol Succinate (Toprol Xl) 100 mg DAILY PO Last administered on 08:43; Admin Dose 100 MG; Start 10/12/16 at 17:00 Diltiazem HCl (Cardizem Iv) 5 mg Q4H PRN IV TACHYCARDIA ; Start 10/12/16 at 17: 00 Zolpidem Tartrate (Ambien) 5 mg HS PRN PO INSOMNIA; Start 10/12/16 at 17:00 Enoxaparin Sodium (Lovenox) 40 mg DAILY SC Last administered on 10/13/16 08:49 ; Admin Dose 40 MG; Start 10/13/16 at 09:00 Benazepril HCl (Lotensin) 40 mg DAILY PO ; Start 10/14/16 at 09:00 Atorvastatin Calcium (Lipitor) 20 mg HS PO ; Start 10/13/16 at 21:00 Benazepril HCl (Lotensin) 20 mg ONCE PO Last administered on 10/13/16 10:10; Admin Dose 20 MG; Start 10/13/16 at 09:30; Stop 10/13/16 at 23:00 Procedures Procedures EKG: afib, rate controlled cxr images reviewed no acute abnl, Aortic atherosclerosis. FRANSISCO DUONG October 13, 2016 12:09
[2016-10-13] MEDS: ATORVASTATIN 20 MG TAB PO SCH (20:21)
--- NOTE | 2016-10-13 20:37 | RADRPT ---
Vent Rate: 85 bpm RR Interval: 0 msec AR Interval: 0 msec QRS Duration: 84 msec QT Interval: 366 msec QTC Interval: 435 msec P-R-T [place]: 0 - 82 - 31 degrees Atrial fibrillation Abnormal ECG Electronically Signed By: Ollie Aquino [id number]
[2016-10-14] VITALS (12 sets, daily range): BP systolic 106–146; BP diastolic 56–90; PULSE 73–92; RESP 16–18
[2016-10-14 01:16] LABS: ADD UMIC YES; URINE BILIRUBIN (Dip) NEGATIVE (NEGATIVE); URINE BLOOD (Dip) NEGATIVE (NEGATIVE); URINE COLOR LT. YELLOW (YELLOW); URINE GLUCOSE (Dip) NEGATIVE (NEGATIVE); URINE KETONES (Dip) NEGATIVE (NEGATIVE); URINE LEUKOCYTE ESTERASE (Dip) TRACE (NEGATIVE); URINE NITRITE (Dip) POSITIVE (NEGATIVE); URINE TOTAL PROTEIN (Dip) NEGATIVE (NEGATIVE); URINE UROBILINOGEN (Dip) 0.2 E.U./dL (0.1-1.0)
[2016-10-14 02:08] LABS: BACTERIA,URINE MANY; URINE RBCS 0-2 /HPF (0)
[2016-10-14] MEDS: BENAZEPRIL 40 MG TAB PO SCH (08:21)
[2016-10-14] MEDS: METOPROLOL (XL) 100 MG TAB PO SCH (08:22)
[2016-10-14] MEDS: ENOXAPARIN 40 MG/0.4 ML SYG SC SCH (08:39)
--- NOTE | 2016-10-14 09:48 | PN ---
DATE: SUBJECTIVE: The patient is ambulating. Denies any chest pain. Heart rate went up to the 130s. Rh ythm is AFib. OBJECTIVE: VITAL SIGNS: Blood pressure 144/83, O2 sat 97%. CHEST: Clinically clear. HEART: S1, S2 with no definite gallops. EXTREMITIES: No edema. Dr. Renteria's consultation and recommendations greatly appreciated. IMPRESSION: 1. Atrial fibrillation, non-valvular, will continue present recommends as per Dr. Renteria. 2. Carotid stenosis. 3. Hypertension. 4. Hyperlipidemia. PLAN: The patient has been advised to continue the present treatment. Will observe her 24 hours. If she is stable, discharge in a.m. after discussing with Dr. Singh. Dictated By: MELANIE ROBLEDO MD, SR/DENIA Conf#: [id number] DID#: [id number]
[2016-10-14 10:12] LABS: ADD SCAN DIFF NO
[2016-10-14 10:21] LABS: BASOPHIL # 0.1 10^3/ul (0.0-0.1); BASOPHILS % 0.5 % (0.0-2.0); EOSINOPHILS # 0.1 10^3/ul (0.0-0.5); EOSINOPHILS % 0.8 % (0.0-7.0); HEMATOCRIT 45.8 % (37.0-47.0); LYMPHOCYTES # 1.9 10^3/ul (0.8-2.9); LYMPHOCYTES % 18.1 % (15.0-51.0); MEAN CORPUSCULAR HEMOGLOBIN 31.1 pg (29.0-33.0); MEAN CORPUSCULAR HGB CONC 32.8 g/dl (32.0-37.0); MEAN CORPUSCULAR VOLUME 94.8 fl (82.0-101.0); MEAN PLATELET VOLUME 9.9 fl (7.4-10.4); MONOCYTE # 1.2 10^3/ul (0.3-0.9); MONOCYTES % 11.4 % (0.0-11.0); NEUTROPHIL # 7.3 10^3/ul (1.6-7.5); NEUTROPHILS % 68.7 % (39.0-77.0); PLATELET COUNT 317 10^3/UL (140-415); RED BLOOD COUNT 4.83 10^6/ul (4.20-5.40); RED CELL DISTRIBUTION WIDTH 12.6 % (11.5-14.5); WHITE BLOOD COUNT 10.7 10^3/ul (4.8-10.8)
[2016-10-14 10:31] LABS: POTASSIUM 5.1 mmol/L (3.5-5.1)
[2016-10-14 10:34] LABS: CREATININE 0.85 mg/dl (0.44-1.00)
[2016-10-14 10:35] LABS: MAGNESIUM 1.7 mg/dl (1.7-2.5)
--- NOTE | 2016-10-14 17:23 | CONS ---
Date/Time of Note Date/Time of Note DATE: 10/14/16 TIME: 17:20 Assessment/Plan Assessment/Plan Chief Complaint/Hosp Course Impression: - atrial fibrillation- new diagnosis, non-valvular. dizziness likely related. currently rate controlled and no further dizziness. does have elevated [id number] score 7 (age > 75, woman, htn, old stroke/tia 2004, pvd). does also have elevated bleeding risk with has bled score of 4. recommend low dose eliquis 2.5mg po bid trial given lower risk of bleeding. if elevated hrs may need increased metoprolol as well - hypertension- improved control, on bid acei now and metop. if elevated hrs may need increased metoprolol as well - carotid stenosis- no cva on ct scan, cont statin. anticoag as above Problems: Consultation Date/Type/Reason Admit Date/Time October 12, 2016 at 15:06 Initial Consult Date 10/13/16 Type of Consultation: Cardiology Referring Provider: MELANIE ROBLEDO MD 24 HR Interval Summary Free Text/Dictation no acute events. seen this am, denies any palpitations, dizziness, falls. tele reviewed, afib rates controlled 80s-90s. Detailed Summary ENT: no complaints Respiratory: no complaints Cardiovascular: no complaints Gastrointestinal: no complaints Genitourinary: no complaints Exam/Review of Systems Vital Signs Vitals Vital Signs Date Time Temp Pulse Resp B/P Pulse Ox O2 Delivery O2 Flow Rate FiO2 10/14/16 16:11 87 10/14/16 15:43 98.1 16 146/74 98 10/13/16 21:35 Room Air Intake and Output 10/13/16 10/13/16 10/14/16 15:00 23:00 07:00 Intake Total 750 ml 180 ml Balance 750 ml 180 ml Exam Constitutional: alert, oriented, well developed Psych: no complaints Head: atraumatic, normocephalic Eyes: EOMI, nl conjunctiva, nl lids ENMT: mucosa pink and moist, nl external ears & nose Neck: non-tender, supple Respiratory: clear to auscultation, normal air movement Cardiovascular: irregular rhythm, nl pulses, No S3, No S4, No bruits, No edema, No systolic murmur Gastrointestinal: nl liver, spleen, non-tender, soft Musculoskeletal: nl extremities to inspection, nl gait and stance Extremities: normal pulses 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 YELLOW Urine Clarity HAZY Urine pH 7.0 Urine Specific [place] <=1.005 L Urine Ketones NEGATIVE Urine Nitrite POSITIVE H Urine Bilirubin NEGATIVE Urine Urobilinogen 0.2 E.U./dL Urine Leukocyte Esterase TRACE H Urine Microscopic RBC 0-2 Urine Microscopic WBC 5-10 Urine Bacteria MANY Urine Hemoglobin NEGATIVE Urine Glucose NEGATIVE Urine Total Protein NEGATIVE White Blood Count 10.7 Red Blood Count 4.83 Hemoglobin 15.0 Hematocrit 45.8 Mean Corpuscular Volume 94.8 Mean Corpuscular Hemoglobin 31.1 Mean Corpuscular Hemoglobin Concent 32.8 Red Cell Distribution Width 12.6 Platelet Count 317 Mean Platelet Volume 9.9 Neutrophils % 68.7 Lymphocytes % 18.1 Monocytes % 11.4 H Eosinophils % 0.8 Basophils % 0.5 Nucleated Red Blood Cells % 0.0 Neutrophils # 7.3 Lymphocytes # 1.9 Monocytes # 1.2 H Eosinophils # 0.1 Basophils # 0.1 Nucleated Red Blood Cells # 0.0 Sodium Level 139 Potassium Level 5.1 Chloride Level 101 Carbon Dioxide Level 25 Anion Gap 18 #H Blood Urea Nitrogen 12 Creatinine 0.85 Glucose Level 128 Calcium Level 10.0 Magnesium Level 1.7 Medications Medications Current Medications Acetaminophen (Tylenol Tab) 500 mg Q4H PRN PO PAIN AND OR ELEVATED TEMP Last administered on 10/14/16 04:30; Admin Dose 500 MG; Start 10/12/16 at 17:00 Clonidine (Catapres) 0.1 mg Q4H PRN PO ELEVATED BLOOD PRESSURE Last administered on 10/13/16 20:20; Admin Dose 0.1 MG; Start 10/12/16 at 17:00 Metoprolol Succinate (Toprol Xl) 100 mg DAILY PO Last administered on 08:22; Admin Dose 100 MG; Start 10/12/16 at 17:00 Diltiazem HCl (Cardizem Iv) 5 mg Q4H PRN IV TACHYCARDIA ; Start 10/12/16 at 17: 00 Zolpidem Tartrate (Ambien) 5 mg HS PRN PO INSOMNIA; Start 10/12/16 at 17:00 Benazepril HCl (Lotensin) 40 mg DAILY PO Last administered on 10/14/16 08:21; Admin Dose 40 MG; Start 10/14/16 at 09:00 Atorvastatin Calcium (Lipitor) 20 mg HS PO Last administered on 10/13/16 20:21 ; Admin Dose 20 MG; Start 10/13/16 at 21:00 Apixaban (Eliquis) 2.5 mg BID PO ; Start 10/14/16 at 21:00 Procedures Procedures imaging reports reviewed in emr FRANSISCO DUONG October 14, 2016 17:23
[2016-10-14] MEDS: ATORVASTATIN 20 MG TAB PO SCH (20:34)
[2016-10-14] MEDS: APIXABAN 5 MG TABLET PO SCH (20:34)
[2016-10-15] VITALS (11 sets, daily range): BP systolic 113–174; BP diastolic 53–79; PULSE 72–121; RESP 18
[2016-10-15 07:12] LABS: ADD SCAN DIFF NO
[2016-10-15 07:20] LABS: BASOPHILS % 0.5 % (0.0-2.0); EOSINOPHILS # 0.1 10^3/ul (0.0-0.5); EOSINOPHILS % 1.1 % (0.0-7.0); HEMOGLOBIN 14.1 g/dl (12.0-16.0); LYMPHOCYTES # 2.1 10^3/ul (0.8-2.9); LYMPHOCYTES % 25.7 % (15.0-51.0); MEAN CORPUSCULAR HEMOGLOBIN 30.7 pg (29.0-33.0); MEAN CORPUSCULAR HGB CONC 32.8 g/dl (32.0-37.0); MEAN CORPUSCULAR VOLUME 93.5 fl (82.0-101.0); MEAN PLATELET VOLUME 10.2 fl (7.4-10.4); MONOCYTE # 0.9 10^3/ul (0.3-0.9); MONOCYTES % 11.2 % (0.0-11.0); NEUTROPHIL # 5.1 10^3/ul (1.6-7.5); NEUTROPHILS % 61.1 % (39.0-77.0); PLATELET COUNT 280 10^3/UL (140-415); RED CELL DISTRIBUTION WIDTH 12.8 % (11.5-14.5); WHITE BLOOD COUNT 8.3 10^3/ul (4.8-10.8)
[2016-10-15 07:41] LABS: POTASSIUM 4.1 mmol/L (3.5-5.1)
[2016-10-15 07:43] LABS: CREATININE 0.87 mg/dl (0.44-1.00)
[2016-10-15 07:44] LABS: CALCIUM 9.6 mg/dl (8.4-10.2); MAGNESIUM 1.7 mg/dl (1.7-2.5)
[2016-10-15] MEDS: APIXABAN 5 MG TABLET PO SCH (08:30)
[2016-10-15] MEDS: BENAZEPRIL 40 MG TAB PO SCH (08:31)
[2016-10-15] MEDS: METOPROLOL (XL) 100 MG TAB PO SCH (08:32)
[2016-10-15] MEDS ORDERED: CEFTRIAXONE 1 GM/50 ML (PMX) 50 ML IVPB ONE (14:00)
[2016-10-15] MEDS ORDERED: MAGNESIUM SULFATE 2 GM/50 ML 50 ML IVPB ONE (14:00)
[2016-10-15] MEDS ORDERED: BENA40TA41 PO (14:01)
[2016-10-15] MEDS ORDERED: APIX5TAB PO (14:01)
[2016-10-15] MEDS ORDERED: ATOR20TA65 PO (14:01)
[2016-10-15] MEDS ORDERED: METO100T13 PO (14:01)
--- NOTE | 2016-10-15 15:27 | CONS ---
Date/Time of Note Date/Time of Note DATE: 10/15/16 TIME: 15:22 Assessment/Plan Assessment/Plan Chief Complaint/Hosp Course Impression: - atrial fibrillation- new diagnosis, non-valvular. dizziness likely related. currently rate controlled and no further dizziness. does have elevated [id number] score 7 (age > 75, woman, htn, old stroke/tia 2004, pvd). does also have elevated bleeding risk with has bled score of 4. recommend cont low dose eliquis 2.5mg po bid trial given lower risk of bleeding. cont metoprolol for rate control, if rates elevated can increase dose, currently appears well controlled. - hypertension- improved control, on bid acei now and metop. if elevated hrs may need increased metoprolol as well - carotid stenosis- no cva on ct scan, cont statin. anticoag as above - vision changes- brief, no cva like sx. if recurrent may need further evaluation Problems: Consultation Date/Type/Reason Admit Date/Time October 12, 2016 at 15:06 Initial Consult Date 10/13/16 Type of Consultation: Cardiology Referring Provider: MELANIE ROBLEDO MD 24 HR Interval Summary Free Text/Dictation no acute event. pt states had some abnl vision when awakening for a few seconds , states room looked upside down. went away quickly, no visual defects, no slurred speech, weakness. eating this am. no palpitations, dizziness, weakness. tele reviewed. no events. afib rates 80s-100s Detailed Summary Eyes: no complaints ENT: no complaints Respiratory: no complaints Cardiovascular: no complaints Gastrointestinal: no complaints Exam/Review of Systems Vital Signs Vitals Vital Signs Date Time Temp Pulse Resp B/P Pulse Ox O2 Delivery O2 Flow Rate FiO2 10/15/16 12:00 85 10/15/16 11:12 98.5 18 128/69 98 10/13/16 21:35 Room Air Intake and Output 10/14/16 10/14/16 10/15/16 15:00 23:00 07:00 Intake Total 680 ml 300 ml Balance 680 ml 300 ml Exam Constitutional: alert, oriented, well developed Psych: no complaints Head: atraumatic, normocephalic Eyes: EOMI, nl conjunctiva, nl lids ENMT: mucosa pink and moist, nl external ears & nose Neck: non-tender, supple Respiratory: clear to auscultation, normal air movement Cardiovascular: irregular rhythm, nl pulses, No S3, No S4, No bruits, No edema, No systolic murmur Gastrointestinal: nl liver, spleen, non-tender, soft Musculoskeletal: nl extremities to inspection, nl gait and stance Extremities: normal pulses Neurological: MANAGER COST II-XII intact, nl mental status, nl speech, nl strength Skin: nl turgor Results Result Diagram: 10/15/1655410/15/16554 Results 24 hrs Laboratory Tests Test 10/15/16 05:55 White Blood Count 8.3 # Red Blood Count 4.60 Hemoglobin 14.1 Hematocrit 43.0 Mean Corpuscular Volume 93.5 Mean Corpuscular Hemoglobin 30.7 Mean Corpuscular Hemoglobin Concent 32.8 Red Cell Distribution Width 12.8 Platelet Count 280 Mean Platelet Volume 10.2 Neutrophils % 61.1 Lymphocytes % 25.7 Monocytes % 11.2 H Eosinophils % 1.1 Basophils % 0.5 Nucleated Red Blood Cells % 0.0 Neutrophils # 5.1 Lymphocytes # 2.1 Monocytes # 0.9 Eosinophils # 0.1 Basophils # 0.0 Nucleated Red Blood Cells # 0.0 Sodium Level 138 Potassium Level 4.1 Chloride Level 101 Carbon Dioxide Level 24 Anion Gap 17 H Blood Urea Nitrogen 17 Creatinine 0.87 Glucose Level 87 # Calcium Level 9.6 Magnesium Level 1.7 Medications Medications Current Medications Metoprolol Succinate (Toprol Xl) 100 mg DAILY PO Last administered on 08:32; Admin Dose 100 MG; Start 10/12/16 at 17:00 Benazepril HCl (Lotensin) 40 mg DAILY PO Last administered on 10/15/16 08:31; Admin Dose 40 MG; Start 10/14/16 at 09:00 Atorvastatin Calcium (Lipitor) 20 mg HS PO Last administered on 10/14/16 20:34 ; Admin Dose 20 MG; Start 10/13/16 at 21:00 Apixaban 2.5 mg 2.5 mg BID PO Last administered on 10/15/16 08:30; Admin Dose 2.5 MG; Start 10/14/16 at 21:00 Magnesium Sulfate (Magnesium Sulfate 2 Gm/50 ml) 50 ml @ 25 mls/hr ONCE ONCE IVPB Last administered on 10/15/16 14:14; Admin Dose 25 MLS/HR; Start at 14:00; Stop 10/15/16 at 15:59 Procedures Procedures imaging reports reviewed in emr FRANSISCO DUONG October 15, 2016 15:27
--- NOTE | 2016-10-15 16:21 | DS ---
DATE OF ADMISSION: 10/12/2016 DATE OF DISCHARGE: 10/15/2016 FINAL DIAGNOSES: 1. Near syncope, likely secondary to severe hypertension and new onset of atrial fibrillation with rapid ventricular response. 2. Peripheral vascular disease with carotid stenosis. 3. Glaucoma. HOSPITAL COURSE: Patient is an 85-year-old lady who presents with increasing dizziness almost about to faint several times 3 days prior to admission and patient was also having palpitations. She was seen in the office, found to be in atrial fibrillation with rapid ventricular response and severe h ypertension referred to the emergency room from where she was admitted. The patient has a history of degenerative joint disease. She had been on metoprolol succinate 100 m g q.24h., Diclofenac 75 mg p.o. daily, hydrochlorothiazide 12.5 mg p.o. daily and Benazepril 20 mg p.o. daily. On physical exam, patient was found to be in no acute distress. Initial blood pressure in the ER wa s 204/100, ventricular response around 100, given 20 mg of labetalol IV with improvement of her bloo d pressure. Chest is clinically clear. Neurologic: No localizing or lateralizing signs. Initial WBC count was 12.7, hematocrit 42, platelet count 294,000, potassium 4.4. Troponin 0.012. CT scan of the brain showed a cystic lesion 3.5 x 4.5 cm in the posterior left frontal lobe with no associa yslvia mass effect. The patient was managed on intravenous diltiazem along with beta blockers and grad ually improved. The patient was seen by Dr. Renteria from cardiology standpoint, who recommended ad ding Eliquis 2.5 mg p.o. b.i.d. Ventricular response, remained in acceptable range. The patient cordero d a UA which showed positive WBCs. The patient was given 1 dose of Rocephin after urine culture is obtained. Magnesium was 1.7, which was replaced with 2 g of magnesium sulfate and the patient was d ischarged home in much improved condition. MEDICATIONS: Include: 1. Metoprolol XL 100 mg p.o. daily. 2. Benazepril 40 mg daily. 3. Atorvastatin 20 mg daily. 4. Eliquis 2.5 mg p.o. b.i.d. The patient will be followed in the office over the course of next week. I will follow up on the ur ine cultures and reevaluate the antibiotic. ADDENDUM: Patient will be referred to a neurologist for evaluation of cystic lesion. Patient prese ntly neurologically stable. Dictated By: MELANIE ROBLEDO MD SR/DENIA Conf#: [id number] DID#: [id number]
== END 2016-10-15 19:32 | disposition home or self-care (01) | DRG 309 ==
LOC: E/R 11:25 → TEL 15:06
PROVIDERS: ADMIT Internal Medicine; ATTEND Internal Medicine
DX: I48.91 Unspecified atrial fibrillation (principal); I16.9 Hypertensive crisis, unspecified; I65.29 Occlusion and stenosis of unspecified carotid artery; I73.9 Peripheral vascular disease, unspecified; I10 Essential (primary) hypertension; E78.5 Hyperlipidemia, unspecified; H40.9 Unspecified glaucoma; Z82.49 Family history of ischemic heart disease and other diseases of the circulatory system
CPT/HCPCS: 36415; 70450; 71010; 80048; 80053; 80061; 81001; 81003; 83036; 83735; 84484; 85025; 85610; 85730; 87086; 93005; 93306; 93880; 96374; J0696; J1650; J3475; J7030